=== PATIENT | male | born 1970 | race Caucasian/White ===

== ENCOUNTER 2017-07-11 11:22 | Emergency (ER) | payer BC ==
[~2017-07-11] VITALS: Ht 170.2 cm; Wt 67.9 kg
[2017-07-11 12:14] LABS: HEMATOCRIT 41.5 % (38.0-50.0); MCH 28.5 PG (29.0-34.0); MCV 86.5 FL (86-99); MEAN PLAT.VOLUME 9.2 uM^3 (9.0-12.4); PLATELET COUNT 309 K/uL (156-360); RBC DIS.WIDTH-CV 13.2 % (11.8-14.6); WHITE BLOOD COUNT 9.5 K/uL (4.1-10.2)
[2017-07-11 12:27] LABS: CHLORIDE 107 mEq/L (99-109); POTASSIUM 4.3 mEq/L (3.7-5.4); SODIUM 141 mEq/L (136-147)
[2017-07-11 12:28] LABS: GLUCOSE 71 mg/dL (70-99)
[2017-07-11 12:30] LABS: ANION GAP 8 MEQ/L (2-14)
[2017-07-11 12:32] LABS: GFR ESTIMATE (CALCULATED) > 59 mL/min/ (58.99-99999)
[2017-07-11 12:33] LABS: UREA NITROGEN (BUN) 10 mg/dL (9-23)
[2017-07-11 14:22] LABS: TROP-I INTERPRETATION NEGATIVE; TROPONIN-I < 0.01 ng/mL (0.0-0.30)
[2017-07-11 15:21] VITALS: BP 96/52
== END 2017-07-11 15:25 | disposition home or self-care (01) ==
LOC: EME 11:22
DX: J44.9 Chronic obstructive pulmonary disease, unspecified (principal); R07.81 Pleurodynia; F17.200 Nicotine dependence, unspecified, uncomplicated
CPT/HCPCS: 71020; 71275; 80048; 84484; 85027; 93005; 99281; 99285; J7030

== ENCOUNTER → 2017-07-28 | Outpatient (CLI) | payer BC | END | disposition home or self-care (01) | LOC: NUC 09:32 | DX: R10.11 Right upper quadrant pain (principal) | CPT/HCPCS: 78226; A9537 ==